=== PATIENT | male | born 1975 | race African-American/Black ===

== ENCOUNTER 2023-09-25 12:54 | Outpatient (CLI) | payer OTHER ==
--- NOTE | 2023-09-26 16:39 | MRI Report ---
PROCEDURE: Knee RT WO INDICATIONS: R KNEE PAIN TECHNIQUE: Noncontrast sagittal PD fast spin echo and T2 fast spin echo with fat saturation, sagittal 3-D spoile d GE with fat saturation; coronal T1 spin echo and PD fast spin echo with fat saturation, and axial P D fast spin echo with fat saturation through the knee. COMPARISON: None. FINDINGS: Image quality: Excellent. Anterior cruciate ligament: Postsurgical changes are seen from prior anterior cruciate ligament recon struction. The femoral tunnel is located at the 11-12 o'clock position in the intercondylar notch wit h the orifice approximately 11 mm from the intersection of the posterior femoral cortex with [place] at's line. The tibial tunnel is located in the middle of the central tibial plateau. A roof osteophyt e in the intercondylar notch mildly impinges upon the anterior cruciate ligament graft. The majority of the graft fibers appear to remain in continuity. There is no significant arthrofibrosis. Posterior cruciate ligament: Intact. Medial collateral ligament: Intact. Lateral collateral ligament: Intact. Medial meniscus: Diminutive appearance of the medial meniscus may be secondary to prior partial meni scectomy and/or chronic degenerative tearing and maceration. The meniscal body is extruded beyond the femorotibial joint line. Lateral meniscus: Abnormal contour of the anterior horn of the lateral meniscus likely related to ch ronic tearing and mild maceration. Medial and lateral tendons: The semimembranosus tendon insertions appear intact. Visualized portion s of the pes anserinus tendons appear normal. The popliteus tendon appears intact. Iliotibial band appears normal. Anterior structures: Mild patellar tendinosis and distal quadriceps tendinosis. No patellar subluxat ion. No femoral trochlear dysplasia or ventral trochlear prominence. No edema in the infrapatellar fat pad. Bones: No acute trabecular bone injury or fracture. Medial femorotibial cartilage: Diffuse full-thickness cartilage loss throughout the weightbearing po rtion of the medial femorotibial compartment with subchondral edema, marginal osteophyte formation, a nd mild remodeling of the articular surfaces. Lateral femorotibial cartilage: Full-thickness cartilage loss is seen at the posterior weightbearing portion of the lateral tibial plateau and there is moderate partial-thickness cartilage irregularity in the lateral femoral condyle. Moderate-sized marginal osteophytes are present. Patellofemoral cartilage: Full-thickness cartilage loss at the trochlear groove and adjacent medial lateral femoral trochlea with marginal osteophytes. Partial-thickness cartilage irregularity is seen in the patella. Soft tissues: There is a small joint effusion. Small intradural loose bodies are seen in the suprapa tellar recess and posterior to the intercondylar notch. A small pericapsular ganglion cyst is seen po steriorly measuring approximately 17 x 9 x 18 mm. There is a trace medial popliteal cyst. The muscul ature surrounding the knee is normal in bulk. IMPRESSION: 1.Postsurgical changes from anterior cruciate ligament reconstruction with tunnel positioning as desc ribed above. And osteophyte at the roof of the intercondylar notch mildly impinges upon the anterior cruciate ligament graft. The majority of the graft fibers remain in continuity. 2.Full-thickness cartilage loss throughout the weightbearing portion of the medial femorotibial harman rtment. Smaller areas of full-thickness cartilage loss are seen in the lateral femorotibial compartme nt and the patellofemoral compartment. Tricompartmental marginal osteophytes. 3.Diminutive appearance of the medial meniscus is likely secondary to prior partial meniscectomy and/ or chronic degenerative tearing and maceration. Mild meniscal extrusion. 4.Chronic mildly macerated tearing of the anterior horn of lateral meniscus. 5.Mild patellar tendinosis and distal quadriceps tendinosis. 6.Moderate joint effusion with a few small intra-articular loose bodies. Reviewed by: Mario Kinney MD on 09/26/2023 4:38 PM PDT Approved by: Mario Kinney MD on 09/26/2023 4:38 PM PDT Station ID: [id number]
== END 2023-09-25 12:55 | disposition home or self-care (01) ==
LOC: DI 12:54
PROVIDERS: ATTEND Nurse Practitioner Family
DX: M23.241 Derangement of anterior horn of lateral meniscus due to old tear or injury, right knee (principal); M25.761 Osteophyte, right knee; M67.961 Unspecified disorder of synovium and tendon, right lower leg; M25.461 Effusion, right knee; M23.41 Loose body in knee, right knee; G89.29 Other chronic pain; Z98.890 Other specified postprocedural states